=== PATIENT | male | born 1960 | race Hispanic/Latino ===

== ENCOUNTER 2023-08-11 22:37 | Emergency (ER) | payer OTHER ==
[~2023-08-11] VITALS: Ht 180.3 cm; Wt 92.1 kg
[~2023-08-11 22:37] MED LIST: GLIPIZIDE ER5 MG PO; GLIPIZIDE5 MG PO; HUMULIN R100 UNIT/2; LANTUS 3ML100 UNITS/; LIPITOR20 MG PO; LOSARTAN POTAS100 MG PO; LOSARTAN POTASS25 MG; METFORMIN HCL500 MG PO
[2023-08-11 23:34] LABS: BASOPHILS % 0.5 % (0.0-1.0); EOSINOPHILS # (AUTO) 0.1 (0.0-0.4); EOSINOPHILS % 0.6 % (0.0-6.0); HEMATOCRIT 46.4 % (38.2-49.6); HEMOGLOBIN 15.4 g/dL (14.0-18.0); LYMPHOCYTES % 11.5 % (18.0-39.1); MEAN CORPUSCULAR HEMOGLOBIN 29.4 pg (28-32); MEAN CORPUSCULAR HGB CONC 33.2 g/dL (31-35); MEAN CORPUSCULAR VOLUME 88.5 fL (81-99); MONOCYTES # (AUTO) 0.6 (0.2-0.8); MONOCYTES % 7.1 % (4.4-11.3); NEUTROPHILS # (AUTO) 6.9 (2.1-6.9); NEUTROPHILS % 80.1 % (38.7-80.0); PLATELET COUNT 203 x10e3/uL (140-360); RED BLOOD COUNT 5.24 x10e6/uL (4.3-5.7); RED CELL DISTRIBUTION WIDTH 13.4 % (11.7-14.4); WHITE BLOOD COUNT 8.64 x10e3/uL (4.8-10.8)
[2023-08-11] MEDS: LACTATED RINGER'S 1,000 ML INJ ONE (23:40)
[2023-08-11] MEDS: PIPERACILLIN/TAZOBACTAM 4.5 GM in SODIUM CHLORIDE 0.9% 100 ML IV ONE (23:40)
[2023-08-11] MEDS: HYDROCODONE/APAP 5MG-325MG TAB PO ONE (23:45)
[2023-08-11 23:51] LABS: ALBUMIN/GLOBULIN RATIO 0.6 (0.8-2.0); BILIRUBIN,TOTAL 0.8 mg/dL (0.2-1.2); CALCIUM 9.7 mg/dL (8.4-10.2); CREATININE, SERUM 1.3 mg/dL (0.72-1.25); TOTAL PROTEIN 8.4 g/dL (6.5-8.1)
[2023-08-12] MEDS ORDERED: LEVOFLOXACIN750 MG PO (00:01)
[2023-08-12 00:25] VITALS: O2SAT 97
[2023-08-13] MEDS ORDERED: ASPIRIN81 MG PO (21:55)
[2023-08-13] MEDS ORDERED: ATORVASTATIN CA80 MG PO (21:55)
[2023-08-13] MEDS ORDERED: BRILINTA90 MG PO (21:55)
[2023-08-13] MEDS ORDERED: NOVOLIN 70100 UNIT/3 SC (21:55)
[2023-08-13] MEDS ORDERED: AMLODIPINE BESY10 MG PO (21:55)
[2023-08-13] MEDS ORDERED: PREGABALIN75 MG PO (21:55)
[2023-08-14] MEDS ORDERED: CYCLOBENZAPRINE5 MG PO (00:39)
[2023-08-14] MEDS ORDERED: NEURONTIN400 MG PO (00:39)
[2023-08-14] MEDS ORDERED: LISINOPRIL10 MG PO (00:39)
== END 2023-08-12 01:15 | disposition home or self-care (01) ==
LOC: ER 22:48
DX: L03.032 Cellulitis of left toe (principal); E11.65 Type 2 diabetes mellitus with hyperglycemia; I10 Essential (primary) hypertension; F41.9 Anxiety disorder, unspecified; Z86.73 Personal history of transient ischemic attack (TIA), and cerebral infarction without residual deficits
CPT/HCPCS: 36415; 73630; 80053; 85025; 99284; J2543; J7050; J7121

== ENCOUNTER → 2023-09-24 | Outpatient (REF) | payer OTHER ==
[~2023-09-24] MED LIST changes: +AMLODIPINE BESY10 MG PO; +ASPIRIN81 MG PO; +ATORVASTATIN CA80 MG PO; +BRILINTA90 MG PO; +CLINDAMYCIN HC150 MG PO; +CYCLOBENZAPRINE5 MG PO; +HYDROCODON-ACE1 EA11 PO; +LEVOFLOXACIN750 MG PO; +LISINOPRIL10 MG PO; +MINERAL OIL/PETROLAT/GLYCERI 6OZ BTL ONE; +NEURONTIN400 MG PO; +NOVOLIN 70100 UNIT/3 SC; +PREGABALIN75 MG PO; +TOPROL XL25 MG PO
== END ==
LOC: WCC 10:21
PROVIDERS: ATTEND Plastic Surgery
DX: E11.621 Type 2 diabetes mellitus with foot ulcer (principal); L97.424 Non-pressure chronic ulcer of left heel and midfoot with necrosis of bone

== ENCOUNTER → 2023-09-25 | Outpatient (REF) | payer OTHER ==
[~2023-09-25] MED LIST changes: -MINERAL OIL/PETROLAT/GLYCERI 6OZ BTL ONE
== END ==
LOC: WCC 15:45
PROVIDERS: ATTEND Plastic Surgery
DX: E11.621 Type 2 diabetes mellitus with foot ulcer (principal); L97.424 Non-pressure chronic ulcer of left heel and midfoot with necrosis of bone; L97.428 Non-pressure chronic ulcer of left heel and midfoot with other specified severity

== ENCOUNTER → 2023-09-29 | Outpatient (REF) | payer OTHER | LOC: WCC 08:00 | PROVIDERS: ATTEND Plastic Surgery | DX: E11.621 Type 2 diabetes mellitus with foot ulcer (principal); L97.424 Non-pressure chronic ulcer of left heel and midfoot with necrosis of bone ==

== ENCOUNTER 2024-09-25 12:32 | Emergency (ER) | payer OTHER ==
[~2024-09-25] VITALS: Ht 170.2 cm; Wt 92.1 kg
[~2024-09-25 12:32] MED LIST changes: +DOXYCYCLINE HY100 MG PO; +ISOSORBIDE MONO30 MG PO; +JARDIANCE10 MG PO; +NOVOLIN 70100 UNIT/3 SQ
[2024-09-25 12:37] VITALS: TEMP 98.3
[2024-09-25 12:58] LABS: BASOPHILS % 0.5 % (0.0-1.0); EOSINOPHILS % 0.3 % (0.0-6.0); HEMATOCRIT 45.7 % (38.2-49.6); HEMOGLOBIN 15.7 g/dL (14.0-18.0); LYMPHOCYTES # (AUTO) 1.7 (1.0-3.2); LYMPHOCYTES % 28.9 % (18.0-39.1); MEAN CORPUSCULAR HEMOGLOBIN 27.5 pg (28-32); MEAN CORPUSCULAR HGB CONC 34.4 g/dL (31-35); MEAN CORPUSCULAR VOLUME 80.2 fL (81-99); MONOCYTES # (AUTO) 0.5 (0.2-0.8); MONOCYTES % 9.1 % (4.4-11.3); NEUTROPHILS # (AUTO) 3.6 (2.1-6.9); NEUTROPHILS % 60.9 % (38.7-80.0); PLATELET COUNT 152 x10e3/uL (140-360); RED CELL DISTRIBUTION WIDTH 17.1 % (11.7-14.4); WHITE BLOOD COUNT 5.96 x10e3/uL (4.8-10.8)
[2024-09-25 13:15] LABS: INR 1.08; PROTHROMBIN TIME 14.7 seconds (11.9-14.5)
[2024-09-25 13:16] LABS: PARTIAL THROMBOPLASTIN TIME 28.1 seconds (23.8-35.5)
[2024-09-25 13:26] LABS: ALBUMIN 3.6 g/dL (3.5-5.0); ALBUMIN/GLOBULIN RATIO 0.9 (0.8-2.0); ANION GAP 24.3 mmol/L (8-16); BILIRUBIN,TOTAL 0.9 mg/dL (0.2-1.2); CALCIUM 9.5 mg/dL (8.4-10.2); CREATININE, SERUM 0.94 mg/dL (0.72-1.25); POTASSIUM 4.3 mmol/L (3.5-5.1); TOTAL PROTEIN 7.4 g/dL (6.5-8.1)
[2024-09-25] MEDS: ONDANSETRON HCL INJ 2MG/ML 2ML 2 MG/ML VIAL IV STA (14:07)
[2024-09-25] MEDS: KETOROLAC TROMETHAMINE 30 MG/ML VIAL IV STA (14:08)
[2024-09-25] MEDS: LISINOPRIL 10 MG TAB PO STA (14:08)
[2024-09-25] MEDS: DIPHENHYDRAMINE HCL 25 MG CAP PO ONE (14:08)
[2024-09-25] MEDS: METOCLOPRAMIDE HCL 10 MG/2ML VIAL IV ONE (14:08)
[2024-09-25 14:14] LABS: CORONAVIRUS COVID-19 AG NEGATIVE (NEGATIVE); INFLUENZA A AG NEGATIVE (NEGATIVE); INFLUENZA B AG NEGATIVE (NEGATIVE)
[2024-09-25 15:15] VITALS: BP 181/89
[2024-09-25] MEDS: ISOSORBIDE MONONITRATE 30 MG TAB CR PO STA (15:15)
[2024-09-25 16:00] VITALS: PULSE 67; RESP 16; O2SAT 98
== END 2024-09-25 16:05 | disposition home or self-care (01) ==
LOC: ER 12:37
DX: R51.9 Headache, unspecified (principal); R07.89 Other chest pain; I10 Essential (primary) hypertension; E11.65 Type 2 diabetes mellitus with hyperglycemia; E11.40 Type 2 diabetes mellitus with diabetic neuropathy, unspecified; I25.10 Atherosclerotic heart disease of native coronary artery without angina pectoris; F41.9 Anxiety disorder, unspecified; Z11.52 Encounter for screening for COVID-19; R94.31 Abnormal electrocardiogram [ECG] [EKG]; Z86.73 Personal history of transient ischemic attack (TIA), and cerebral infarction without residual deficits
CPT/HCPCS: 36415; 70450; 71045; 80053; 84484; 85025; 85610; 85730; 87428; 93005; 99284; J1885; J2405; J2765